=== PATIENT | female | born 1965 | race Caucasian/White ===

== ENCOUNTER 2016-09-26 18:03 | Emergency (ER) | payer BC ==
[2016-09-26] MEDS ORDERED: KETOROLAC TROMETHAMINE 30 MG/ML VIAL ONE (19:41)
[2016-09-26] MEDS ORDERED: ONDANSETRON ODT 4 MG TAB.RAPDIS ONE ×2 (19:42→19:54)
--- NOTE | 2016-09-26 20:04 | RADIOLOGY REPORT ---
Two views of the chest demonstrate the heart and vessels to be unremarkable. Lung valdez are clear. No hemothorax or pneumothorax is identified. IMPRESSION: Unremarkable two views of the chest. No displaced injury is identified. If clinically indicated further evaluation with CT scanning may be of benefit. MTDD
--- NOTE | 2016-09-26 20:07 | ER NURSING DOCUMENTATION ---
Nurse's Notes [facility] Name:Rebecca Corcoran Age:51 yrs Sex:Female :1965 Arrival Date:09/26/2016 Time:18:03 BedTrauma-B Private MD: Diagnosis:Chest Contusion Presentation: 09/26 18:25 Presenting complaint: Patient states: patient slid and fell down an ice field lpr approximately 4-5 hours ago. Did not hit her head or LOC. C/O pain to sternum and left front and back ribs. Multiple scrapes across arms and legs. Care prior to arrival: None. Mechanism of Injury: Fall standing position on a snow field. Trauma event details: Injury occurred September 26, 2016. 18:25 Acuity: BAILEY 2 lpr 18:25 Method Of Arrival: Walk In lpr 18:46 Transition of care: patient was not received from another setting of care. lpr Historical: - Allergies: PENICILLINS; Erythromycin; - Home Meds: 1. levothyroxine oral - PMHx: HYPOTHYROIDISM; - PSHx: ; - Tetanus: < 10 years < 10 years. - Ebola Screening: : No symptoms or risks identified at this time. . - Immunization history: Flu Vaccine < 1 year. - Social history: Smoking status: Patient states was never smoker of tobacco. Screenin:46 Abuse screen: Denies threats or abuse. Nutritional screening: No deficits noted. lpr Tuberculosis screening: No symptoms or risk factors identified. 18:48 Infectious Disease Risk None. lpr Primary Survey: 18:37 Airway: patent. Breathing/Chest: Respiratory pattern: regular, Respiratory effort: lpr spontaneous. Circulation: Skin color: pink. Secondary Survey: 18:37 HEENT: No deficits noted. Gastrointestinal: No deficits noted. : No deficits noted. lpr Musculoskeletal: Circulation, motion, and sensation intact Capillary refill < 3 seconds Range of motion intact in all extremities. Assessment: 18:35 General: Appears uncomfortable, Behavior is cooperative. Pain: Complains of pain in lpr mid-sternal area, left anterior and posterior ribs. Neuro: Level of Consciousness is awake, alert, obeys commands, Oriented to person, place, time, event. EENT: Oral mucosa is moist. Cardiovascular: Capillary refill < 3 seconds. Respiratory: Airway is patent Respiratory effort is even, unlabored, Respiratory pattern is regular, symmetrical. GI: Abdomen is flat, non- distended Denies pain. : No deficits noted. Derm: Skin is pink, warm & dry. Musculoskeletal: Circulation, motion, and sensation intact Capillary refill < 3 seconds Range of motion intact in all extremities. Injury Description: Abrasion sustained to right arm, left arm, right leg and left leg. Vital Signs: 18:37 BP 111 / 87; Pulse 72; Resp 15; Temp 97.8; Pulse Ox 94% on R/A; Weight 72.57 kg (R); lpr Height 5 ft. 10 in. (177.80 cm) (R); Pain 7/10; 19:00 BP 131 / 81 (auto/); lpr 19:03 Pulse 82; Resp 15; Pulse Ox 94% ; Pain 7/10; lpr 19:30 BP 118 / 82 (auto/); lpr 19:33 Pulse 88; Resp 16; Pulse Ox 94% ; Pain 6/10; lpr 18:37 Body Mass Index 22.96 (72.57 kg, 177.80 cm) lpr Trauma Score (Adult): 18:37 Eye Response: spontaneous(1); Verbal Response: oriented(1); Motor Response: obeys lpr commands(2); Systolic BP: > 89 mm Hg(4); Respiratory Rate: 10 to 29 per min(4); [place] Score: 15; Trauma Score: 12 ED Course: 18:10 Patient arrived in ED. jl 18:17 Jaren Leyva MD is Attending Physician. tl1 18:27 Triage completed. lpr 18:46 Valuables Remains with patient Patient has correct armband on for positive lpr identification. Placed in gown. Bed in low position. Call light in reach. Side rails up X 1. 19:42 Valuables. lpr Administered Medications: 19:37 Not Given (patient driving.): Dilaudid 1 mg IM once lpr 19:37 Drug: Toradol 30 mg; Route: IM; Site: right gluteus; lpr 19:37 Drug: Zofran 4 mg; Route: PO; lpr 19:37 Drug: HYDROcodone-acetaminophen (5mg/325 mg) 1-2 tabs 1 tabs; Route: PO; lpr 19:37 Drug: Zofran 1 tablet; Route: PO; lpr Outcome: 19:07 Discharge ordered by . tl1 19:42 Discharged to home ambulatory. lpr 19:42 Condition: good 19:42 Discharge Assessment: Patient awake, alert and oriented x 3. No cognitive and/or functional deficits noted. Patient verbalized understanding of disposition instructions. 19:42 Discharge instructions given to patient, Instructed on discharge instructions, follow up and referral plans. Respiratory precautions Demonstrated understanding of instructions, medications, Prescriptions given X 2. 20:06 Patient left the ED. mv 09/27 10:10 Discharge F/U Call: Unable to reach: left voicemail: lc Signatures: Tressa Reich, RN RN Lyssa Fleming Leslie, RN RN lpr Jaren Leyva MD MD tl1 marissa bailey Jeff jl
--- NOTE | 2016-09-28 20:07 | ER PHYSICIAN DOCUMENTATION ---
Physician Documentation [facility] Name:Rebecca Corcoran Age:51 yrs Sex:Female :1965 Arrival Date:09/26/2016 Time:18:03 BedTrauma-B Private MD: Jaren Curran Disposition: 09/28 09:16 Chart complete. tl1 Disposition: 09/26/16 19:07 Discharged to Home/Self Care. Impression: Chest Contusion. - Condition is Good. - Discharge Instructions: CHEST CONTUSION - CHEST WALL CONTUSION. - Prescriptions for [place] 7.5- 325 mg Oral Tablet - take 1 tablet by ORAL route every 6 hours As needed; 20 tablet. Zofran 4 mg Oral Tablet - take 1-2 tablet by ORAL route every 4-6 hours As needed; 10 tablet. - Medical Reconciliation form form. - Follow up: Private Physician; When: 4- 6 days; Reason: Recheck today's complaints, Continuance of care. - Problem is new. - Symptoms have improved. HPI: 09/26 18:15 This 51 yrs old Female presents to ER via Walk In with complaints of Fall tl1 Injury - RIB PAIN. 18:15 She slipped on a snow field and fell about 30 feet and tumbled into some rocks. She tl1 struck the left side of her chest, then hiked out for about 4 hours [employer]. Her only complaint is pain in the mid and lower lateral left chest, and some left sternal/parasternal pain. Denies dyspnea, cough, hemoptysis, abdominal pain, n/v. Did not hit her head . Denies neck pain, n/w/t. No back or extremity pain. Historical: - Allergies: PENICILLINS; Erythromycin; - Home Meds: 1. levothyroxine oral - PMHx: HYPOTHYROIDISM; - PSHx: ; - Tetanus: < 10 years < 10 years. - Ebola Screening: : No symptoms or risks identified at this time. . - Immunization history: Flu Vaccine < 1 year. - Social history: Smoking status: Patient states was never smoker of tobacco. ROS: 17:30 MS/extremity: Negative for acute changes, injury or acute deformity. tl1 17:30 All other systems are negative. Exam: 17:30 Constitutional: This is a well developed, well nourished patient who is awake, alert, tl1 and in no acute distress. 17:30 Head/Face: Normocephalic, atraumatic. tl1 17:30 Eyes: Pupils: equal, round, and reactive to light and accomodation. 17:30 ENT: Exam is negative for 17:30 Neck: C-spine: Nexus Criteria: Nexus criteria: no cervical midline tenderness, patient is not intoxicated, mental status is normal, no focal/neurologic deficits, and no painful distracting injuries are present, vertebral tenderness, is not appreciated, ROM/movement: is normal, is supple. 17:30 Chest/axilla: Inspection: ecchymosis, that is mild, of the mid lateral chest in mid axillary line Palpation: crepitus, is not appreciated, tenderness, that is mild. 17:30 Cardiovascular: Rate: normal, Rhythm: regular, Heart sounds: normal. 17:30 Respiratory: Respirations: normal, Breath sounds: are normal. 17:30 Abdomen/GI: Palpation: abdomen is soft and non-tender. 17:30 Back: pain, is absent, CVA tenderness, is absent, vertebral tenderness, is not appreciated. 17:30 Musculoskeletal/extremity: Exam is negative for acute changes. 17:30 Skin: Exam negative for acute changes. 17:30 Neuro: Exam negative for acute changes. Vital Signs: 18:37 BP 111 / 87; Pulse 72; Resp 15; Temp 97.8; Pulse Ox 94% on R/A; Weight 72.57 kg (R); lpr Height 5 ft. 10 in. (177.80 cm) (R); Pain 7/10; 19:00 BP 131 / 81 (auto/); lpr 19:03 Pulse 82; Resp 15; Pulse Ox 94% ; Pain 7/10; lpr 19:30 BP 118 / 82 (auto/); lpr 19:33 Pulse 88; Resp 16; Pulse Ox 94% ; Pain 6/10; lpr 18:37 Body Mass Index 22.96 (72.57 kg, 177.80 cm) lpr Trauma Score (Adult): 18:37 Eye Response: spontaneous(1); Verbal Response: oriented(1); Motor Response: obeys lpr commands(2); Systolic BP: > 89 mm Hg(4); Respiratory Rate: 10 to 29 per min(4); [place] Score: 15; Trauma Score: 12 MDM: 18:17 Patient medically screened. tl1 19:50 Differential diagnosis: contusion, rib fracture, pneumothorax,, pulmonary contusion. tl1 doubt sternal fracture or significant blunt thoracic trauma.. Data reviewed: vital signs, nurses notes, radiologic studies, plain films, and as a result, I will discharge patient. Test interpretation: by ED physician or midlevel provider: plain radiologic studies. Counseling: I had a detailed discussion with the patient and/or guardian regarding: the historical points, exam findings, and any diagnostic results supporting the discharge/admit diagnosis, radiology results, the need for outpatient follow up, to return to the emergency department if symptoms worsen or persist or if there are any questions or concerns that arise at home. Medication response: The patient's symptoms have improved, ED course: hemodynamically stable. 09/26 21:01 Order name: [id number] EDMS Dispensed Medications: 19:37 Not Given (patient driving.): Dilaudid 1 mg IM once lpr 19:37 Drug: Toradol 30 mg; Route: IM; Site: right gluteus; lpr 19:37 Drug: Zofran 4 mg; Route: PO; lpr 19:37 Drug: HYDROcodone-acetaminophen (5mg/325 mg) 1-2 tabs 1 tabs; Route: PO; lpr 19:37 Drug: Zofran 1 tablet; Route: PO; lpr Signatures: Rachel Mccrary RN RN lpr Jaren Leyva MD MD tl1 marissa bailey
== END 2016-09-26 20:07 | disposition home or self-care (01) ==
LOC: ER 18:03
DX: S20.212A Contusion of left front wall of thorax, initial encounter (principal); W00.2XXA Other fall from one level to another due to ice and snow, initial encounter; Y92.838 Other recreation area as the place of occurrence of the external cause; Y93.01 Activity, walking, marching and hiking; Z79.899 Other long term (current) drug therapy
CPT/HCPCS: 71020; 96372; 99283; J1885